=== PATIENT | female | born 1965 | race Caucasian/White ===

== ENCOUNTER 2017-11-28 09:34 | Outpatient (CLI) | payer BC | END 2017-11-28 09:35 | disposition home or self-care (01) | LOC: BICMRI 09:34 | PROVIDERS: ATTEND Orthopaedic Surgery | DX: M79.89 Other specified soft tissue disorders (principal) ==

== ENCOUNTER 2018-12-18 16:13 | Outpatient (CLI) | payer OTHER ==
--- NOTE | 2018-12-18 16:31 | RAD ---
Exam:Right hand 3 views HISTORY: Inflammation. Infection. COMPARISON: None FINDINGS: No fracture. No cortical irregularity. No periosteal reaction. Joint spaces are preserved There is a stable though better demonstrated expansile lesion with chondroid matrix. Findings are com patible with a low-grade lesion and a enchondroma is favored. There is been no appreciable change since the right finger radiograph from 10/27/2017 IMPRESSION: 1. No fractures. No significant loss of joint space height. 2. Expansile low-grade lesion involving the index finger, likely representing an enchondroma.
== END 2018-12-18 16:14 | disposition home or self-care (01) ==
LOC: BICRAD 16:13
PROVIDERS: ATTEND Family Medicine
DX: L08.9 Local infection of the skin and subcutaneous tissue, unspecified (principal); L98.8 Other specified disorders of the skin and subcutaneous tissue

== ENCOUNTER 2020-08-04 11:11 | Outpatient (CLI) | payer BC | END 2020-08-04 11:12 | disposition home or self-care (01) | LOC: BICMAMMO 11:11 | PROVIDERS: ATTEND Family Medicine | DX: Z12.31 Encounter for screening mammogram for malignant neoplasm of breast (principal) | CPT/HCPCS: 77063; 77067 ==

== ENCOUNTER 2021-08-24 15:37 | Outpatient (CLI) | payer BC | END 2021-08-24 15:38 | disposition home or self-care (01) | LOC: BICMAMMO 15:37 | PROVIDERS: ATTEND Family Medicine | DX: Z12.31 Encounter for screening mammogram for malignant neoplasm of breast (principal) | CPT/HCPCS: 77063; 77067 ==

== ENCOUNTER 2022-12-19 13:52 | Outpatient (CLI) | payer BC | END 2022-12-19 13:53 | disposition home or self-care (01) | LOC: BICMAMMO 13:52 | PROVIDERS: ATTEND Family Medicine | DX: Z12.31 Encounter for screening mammogram for malignant neoplasm of breast (principal); Z13.820 Encounter for screening for osteoporosis; M81.0 Age-related osteoporosis without current pathological fracture; M85.851 Other specified disorders of bone density and structure, right thigh; Z78.0 Asymptomatic menopausal state | CPT/HCPCS: 77063; 77067; 77080 ==

== ENCOUNTER 2024-05-15 10:38 | Outpatient (CLI) | payer BC | END 2024-05-15 10:39 | disposition home or self-care (01) | LOC: BICRAD 10:38 | DX: M79.671 Pain in right foot (principal) ==